=== PATIENT | male | born 1965 | race Caucasian/White ===

== ENCOUNTER 2019-01-22 21:23 | Emergency (ER) | payer BC ==
[~2019-01-22 21:23] MED LIST: Iopamidol 370 76% 125 ML VIAL FS ONE
[2019-01-22 22:11] LABS: #Basophils 0.1 thou/uL (0.0-0.2); #Eosinphils 0.2 thou/uL (0.0-0.7); #Lymphocytes 2.1 thou/uL (1.20-3.40); #Monocytes 0.5 thou/uL (0.11-0.59); #Neutrophils 3.2 thou/uL (1.40-6.50); %Basophils 1.1 % (0.0-1.0); %Lymphocytes 34.1 % (21.0-51.0); %Monocytes 8.4 % (0.0-10.0); %Neutrophils 52.4 % (42.0-75.0); Hemoglobin 15.4 g/dL (14.0-18.0); Mean Corpuscular HGB CONC 33.5 g/dL (32.0-36.0); Mean Corpuscular Hemoglobin 29.1 pg (27.0-31.0); Mean Corpuscular Volume 86.7 fL (78.0-98.0); Mean Platelet Volume 7.3 fL (7.4-10.4); Platelet Count 219 thou/uL (130-400); RBC Distribution Width 11.7 % (11.5-14.5); Red Blood Cell (RBC) Count 5.31 mill/uL (4.70-6.10)
[2019-01-22] MEDS ORDERED: Sodium Chloride 0.9% 1,000 ML ONE (22:17)
[2019-01-22] MEDS ORDERED: Morphine 4 MG/ML VIAL ONE (22:18)
[2019-01-22] MEDS ORDERED: Nitroglycerin 0.4 MG TAB 1 EACH ONE (22:18)
[2019-01-22] MEDS ORDERED: Aspirin Chewable 81 MG TAB ONE (22:18)
[2019-01-22 22:30] LABS: ALT (SGPT) 44 U/L (8-55); AST (SGOT) 22 U/L (5-34); Albumin 4.1 g/dL (3.5-5.0); Alkaline Phosphatase 79 U/L (40-150); Anion Gap 15 mmol/L (10-20); BUN (Urea Nitrogen) 11 mg/dL (8.4-25.7); Bilirubin, Total 0.6 mg/dL (0.2-1.2); CK (CPK) 32 U/L (30-200); Calc. Creatinine Clearance 0 mL/min (70-130); Calcium 9.2 mg/dL (7.8-10.44); Carbon Dioxide 22 mmol/L (22-29); Chloride 108 mmol/L (98-107); Estimated GFR-MDRD Greater than 90; Globulin 2.6 g/dL (2.4-3.5); Glucose 105 mg/dL (70-105); Lipase 30 U/L (8-78); Potassium 3.8 mmol/L (3.5-5.1); Protein, Total 6.7 g/dL (6.0-8.3); Sodium 141 mmol/L (136-145)
--- NOTE | 2019-01-22 23:10 | CT ---
CT angiogram of chest performed with intravenous contrast enhancement with 3-D reconstructions: HISTORY: Chest pain. Status post cholecystectomy 9 days ago. COMPARISON: None. FINDINGS: The lungs are clear of any infiltrative process. There are no pleural effusions or pulmonar y nodules. There is no significant mediastinal or hilar lymphadenopathy. The thoracic aorta is normal in caliber. There is suboptimal pulmonary artery opacification I see no evidence for any central pulmonary embolus peripheral emboli are not excluded. Visualized liver parenchyma shows no focal findings postop cholecystectomy changes are present. Minim al edema change seen in the gallbladder bed. A small cyst is seen within the right lobe liver. IMPRESSION: Suboptimal bolus. No evidence for any central pulmonary embolus.
== END 2019-01-23 02:19 | disposition home or self-care (01) ==
LOC: MADERS 21:23
DX: R07.9 Chest pain, unspecified (principal); R94.31 Abnormal electrocardiogram [ECG] [EKG]; J45.909 Unspecified asthma, uncomplicated; F17.220 Nicotine dependence, chewing tobacco, uncomplicated
CPT/HCPCS: 36415; 71275; 80053; 82550; 83690; 84484; 85025; 93005; 94760; 96360; 96361; J2270; J7050; Q9967